=== PATIENT | female | born 1975 ===

== ENCOUNTER 2021-11-08 05:48 | Day surgery (SDC) | payer OTHER ==
[2021-11-08] MEDS ORDERED: PROTONIX40 MG PO (08:42)
== END 2021-11-08 09:50 | disposition home or self-care (01) ==
LOC: AMB-ENDOS 05:48
PROVIDERS: ATTEND Surgery
DX: K29.60 Other gastritis without bleeding (principal); K44.9 Diaphragmatic hernia without obstruction or gangrene; Z20.822 Contact with and (suspected) exposure to COVID-19